=== PATIENT | female | born 1950 | race African-American/Black ===

== ENCOUNTER 2023-08-26 14:01 | Emergency (ER) | payer MEDICARE, MEDICAID ==
[~2023-08-26] VITALS: Ht 165.1 cm; Wt 91.2 kg
[~2023-08-26 14:01] MED LIST: ACET-9536 PO; AMOX-1230 PO; ATOR10TA51 PO; BECL0.089 INH; CHOL100084 PO; DICL100T2 PO; FENO130C9 PO; GABA400C PO; HYDR-4004 PO; LOSA50TA57 PO; METO50TE2 PO; MEX2.5; OMEP40EC24 PO; PRED10TA5 PO; PROBIOTIC; [UNRECOGNIZED DRUG - CODE] PO; [UNRECOGNIZED DRUG - CODE] PO
[2023-08-26 14:05] VITALS: BP 107/70; PULSE 75; RESP 20; TEMP 97.7; O2SAT 97
[2023-08-26] MEDS: ACETAMINOPHEN 325 MG TAB PO ONE (16:23)
[2023-08-26 17:16] VITALS: BP 123/69; PULSE 64; RESP 16; TEMP 36.50292; O2SAT 99
== END 2023-08-26 17:16 | disposition home or self-care (01) ==
LOC: MED 14:01
DX: S83.92XA Sprain of unspecified site of left knee, initial encounter (principal); S00.33XA Contusion of nose, initial encounter; S09.90XA Unspecified injury of head, initial encounter; J45.909 Unspecified asthma, uncomplicated; I10 Essential (primary) hypertension; E11.9 Type 2 diabetes mellitus without complications; Z96.653 Presence of artificial knee joint, bilateral; Z88.8 Allergy status to other drugs, medicaments and biological substances; Z79.899 Other long term (current) drug therapy; W01.0XXA Fall on same level from slipping, tripping and stumbling without subsequent striking against object, initial encounter; Y93.01 Activity, walking, marching and hiking; Y92.89 Other specified places as the place of occurrence of the external cause; Y99.8 Other external cause status
CPT/HCPCS: 70450; 70486; 73030; 73502; 73562; 99284

== ENCOUNTER 2023-08-28 15:32 | Emergency (ER) | payer MEDICARE, MEDICAID ==
[~2023-08-28] VITALS: Ht 165.1 cm; Wt 90.7 kg
[2023-08-28 15:34] VITALS: BP 142/85; PULSE 63; RESP 15; TEMP 98; O2SAT 99
[2023-08-28] MEDS: KETOROLAC 30 MG/ML VIAL IM ONE (17:20)
[2023-08-28] MEDS: ACETAMINOPHEN EXTRA STRENGTH 500 MG TAB PO ONE (17:20)
[2023-08-28 18:42] VITALS: BP 125/67; PULSE 54; RESP 17; TEMP 98.6; O2SAT 98
== END 2023-08-28 18:42 | disposition home or self-care (01) ==
LOC: MED 15:32
DX: M79.662 Pain in left lower leg (principal); M25.552 Pain in left hip; J45.909 Unspecified asthma, uncomplicated; E78.5 Hyperlipidemia, unspecified; E11.9 Type 2 diabetes mellitus without complications; I10 Essential (primary) hypertension; Z88.8 Allergy status to other drugs, medicaments and biological substances; Z79.4 Long term (current) use of insulin; Z79.899 Other long term (current) drug therapy
CPT/HCPCS: 72192; 96372; 99285; J1885